=== PATIENT | female | born 1970 | race Caucasian/White ===

== ENCOUNTER 2019-03-05 19:30 | Emergency (ER) | payer OTHER ==
[~2019-03-05] VITALS: Ht 175.3 cm; Wt 79.0 kg
[2019-03-05] MEDS ORDERED: SODIUM CHLORIDE 0.9% 1,000 ML IV ONE (20:18)
[2019-03-05] MEDS ORDERED: ONDANSETRON HCL 4MG/2ML INJ IV ONE (20:30)
[2019-03-05 21:17] LABS: BASOPHILS % 0.3 % (0.0-2.0); EOSINOPHILS % 1.2 % (0.0-5.0); HEMATOCRIT. 33.8 % (36.0-48.0); HEMOGLOBIN. 11.4 g/dL (12.0-16.0); LYMPHOCYTES % 16.1 % (20.0-50.0); MEAN CORPUSCULAR HEMOGLOBIN 29.3 pg (28.0-32.0); MEAN CORPUSCULAR VOLUME 86.8 fL (81.0-99.0); MEAN PLATELET VOLUME 7.4 fl (7.4-10.4); MONOCYTES % 4.3 % (2.0-8.0); NEUTROPHILS % 78.1 % (40.0-76.0); PLATELET 308 x1000/uL (130-400); RED BLOOD CELL COUNT 3.89 mill/uL (4.2-5.4); RED CELL DISTRIBUTION WIDTH 13.7 % (11.6-14.6)
[2019-03-05 21:22] LABS: CHLORIDE 106 mEq/L (98-107)
[2019-03-05 21:33] LABS: B-HCG QUANTITATIVE 723 mIU/mL (<3)
[2019-03-06] MEDS ORDERED: ACETAMINOPHEN 650MG/20.3ML UDC PO ONE
[2019-03-06 00:42] LABS: HEMATOCRIT 28.9 % (36.0-48.0); HEMOGLOBIN 9.8 g/dL (12.0-16.0)
[2019-03-06] MEDS ORDERED: ONDANSETRON HCL 4MG/2ML INJ IV SCH (01:15)
[2019-03-06 04:54] VITALS: BP 122/72
== END 2019-03-06 05:20 | disposition short-term general hospital (02) ==
LOC: ER 21:58
DX: O02.1 Missed abortion (principal); O08.1 Delayed or excessive hemorrhage following ectopic and molar pregnancy
CPT/HCPCS: 36415; 76801; 76817; 80053; 84702; 85014; 85018; 85025; 86850; 86900; 86901; 96374; 99285; J2405; J7030; Z7610